=== PATIENT | female | born 1990 | race Caucasian/White ===

== ENCOUNTER 2021-09-16 20:15 | Emergency (ER) | payer OTHER ==
[2021-09-16 20:24] VITALS: BP 124/88; PULSE 89; TEMP 98.3; BMI 42.0
== END 2021-09-16 22:12 | disposition home or self-care (01) ==
LOC: JERFT 20:15 → JER 20:15 → JERFT 22:12
DX: S80.12XA Contusion of left lower leg, initial encounter (principal)
CPT/HCPCS: 73590-TC-LT-FY; 99284-25

== ENCOUNTER 2022-09-06 04:53 | Emergency (ER) | payer OTHER ==
[2022-09-06 05:09] VITALS: BP 111/79; PULSE 102; RESP 20; TEMP 98.4; BMI 44.2
[2022-09-06] MEDS ORDERED: ACETAMINOPHEN 500 MG TABLET (FP) PO ONE (05:14)
[2022-09-06] MEDS ORDERED: MENTHOL/PHENOL 1 EACH UD MM PRN (05:14)
[2022-09-06] MEDS ORDERED: DEXAMETHASONE LIQUID 0.5 MG/5 ML PO ONE (05:14)
[2022-09-06] MEDS ORDERED: ACETAMINOPHEN 325 MG TABLET (FP) ONE (05:17)
[2022-09-06] MEDS ORDERED: DEXAMETHASONE SOD PHOSPHATE 10 MG/1 ML VIAL ONE (05:17)
[2022-09-06] MEDS ORDERED: MENTHOL/PHENOL 1 EACH UD MM ONE (05:17)
[2022-09-06] MEDS ORDERED: BENZOCAINE/MENTH/CETYLPYRD CL 1 EACH LOZENGE MM ONE (05:18)
[2022-09-06] MEDS ORDERED: CLINDAMYCIN HCL 300 MG CAPSULE PO ONE (05:33)
[2022-09-06] MEDS ORDERED: KETOROLAC TROMETHAMINE 30 MG/1 ML VIAL IM ONE (05:37)
[2022-09-06] MEDS ORDERED: KETOROLAC TROMETHAMINE 30 MG/1 ML VIAL ONE (05:42)
[2022-09-06] MEDS ORDERED: CLINDAMYCIN HCL 150 MG CAPSULE (FP) ONE (05:42)
== END 2022-09-06 05:56 | disposition home or self-care (01) ==
LOC: JER 04:53
PROC: 3E0233Z Introduction of Anti-inflammatory into Muscle, Percutaneous Approach (ICD-10-PCS; principal; 2022-09-06)
DX: J02.9 Acute pharyngitis, unspecified (principal); Z20.822 Contact with and (suspected) exposure to COVID-19
CPT/HCPCS: 0241U-QW; 87070; 87077; 99284-25